=== PATIENT | male | born 1965 | race Caucasian/White ===

== ENCOUNTER 2016-08-18 17:42 | Inpatient (IN) | payer OTHER ==
[~2016-08-18] VITALS: Ht 172.7 cm; Wt 78.3 kg
[2016-08-18] MEDS ORDERED: SOD CHLORIDE 0.9% 500 ML IV STA (22:21)
[2016-08-18 22:46] LABS: BASOPHILS % 0.4 % (0.0-2.0); EOSINOPHILS # 0.3 10^3/ul (0.0-0.5); EOSINOPHILS % 3.1 % (0.0-7.0); HEMOGLOBIN 16.1 g/dl (14.0-18.0); LYMPHOCYTES # 2.6 10^3/ul (0.8-2.9); LYMPHOCYTES % 27.3 % (15.0-51.0); MEAN CORPUSCULAR HEMOGLOBIN 31.4 pg (29.0-33.0); MEAN CORPUSCULAR HGB CONC 34.9 g/dl (32.0-37.0); MEAN CORPUSCULAR VOLUME 90.1 fl (82.0-101.0); MEAN PLATELET VOLUME 9.2 fl (7.4-10.4); MONOCYTE # 0.9 10^3/ul (0.3-0.9); MONOCYTES % 9.4 % (0.0-11.0); NEUTROPHIL # 5.8 10^3/ul (1.6-7.5); NEUTROPHILS % 59.8 % (39.0-77.0); PLATELET COUNT 168 10^3/UL (140-440); RED BLOOD COUNT 5.11 10^6/ul (4.70-6.10); RED CELL DISTRIBUTION WIDTH 12.1 % (11.5-14.5); UNCORRECTED WBC 9.7 10^3/ul (4.8-10.8); WHITE BLOOD COUNT 9.7 10^3/ul (4.8-10.8)
--- NOTE | 2016-08-18 22:48 | RADRPT ---
PROCEDURE: XR Chest. CLINICAL INDICATION: Chest Pain. TECHNIQUE: Single frontal view of the chest was obtained COMPARISON: None FINDINGS: Cardiomegaly. The lungs are clear. There is no pleural effusion or pneumothorax. IMPRESSION: No acute disease. RPTAT: UU Physician Agueda Date Time Electronically viewed and signed by Physician Agueda on 08/18/2016 22:48 RS/
[2016-08-18 22:54] LABS: ALBUMIN 4.5 g/dl (3.3-4.9); INR 0.95; PROTIME 12.7 Sec (12.2-14.2)
[2016-08-18 22:55] LABS: CHLORIDE 96 mmol/L (97-110); CONDITION 1; PARTIAL THROMBOPLASTIN TIME 25.5 Sec (25.0-35.0); POTASSIUM 4.5 mmol/L (3.5-5.1); SODIUM 138 mmol/L (135-144)
[2016-08-18 22:57] LABS: ALBUMIN/GLOBULIN RATIO 1.55; ANION GAP 21 (8-16); ASPARTATE AMINO TRANSFERASE 28 IU/L (15-46); BILIRUBIN,INDIRECT 0.3 mg/dl (0-1.1); BILIRUBIN,TOTAL 0.3 mg/dl (0.2-1.3); CARBON DIOXIDE 26 mmol/L (21-31); CREATININE 1.58 mg/dl (0.61-1.24); TOTAL PROTEIN 7.4 g/dl (6.1-8.1)
[2016-08-18 22:58] LABS: ALANINE AMINOTRANSFERASE 49 IU/L (13-69); ALKALINE PHOSPHATASE 64 IU/L (42-121); BLOOD UREA NITROGEN 34 mg/dl (7-20); CALCIUM 8.8 mg/dl (8.4-10.2); GLUCOSE 183 mg/dl (70-220)
[2016-08-18 23:06] LABS: B-TYPE NATRIURETIC PEPTIDE 19 PG/ML (0-125)
[2016-08-18 23:14] LABS: TROPONIN-I < 0.012 ng/ml (0.00-0.12)
[2016-08-19] VITALS (11 sets, daily range): BP systolic 127–144; BP diastolic 85–94; PULSE 63–68; RESP 16–22; TEMP 97.8; Ht 172.7 cm; Wt 78.3 kg
--- NOTE | 2016-08-19 01:50 | ERA ---
ER Documentation Chief Complaint Date/Time DATE: 08/19/16 TIME: 01:49 Chief Complaint HEADACHE HIGH BP AND GEN WEAKNESS FOR THE PAST FEW WKS. NO NEURO DEF HPI This is a 50-year-old male with headache and high blood pressure generalized weakness opacities. No neuro deficit. No chest pain. No nausea no vomiting no other current complaints. ROS All systems reviewed and are negative except as per history of present illness. PMhx/Soc Medical and Surgical Hx: pt denies Surgical Hx History of Surgery: No Anesthesia Reaction: No Hx Neurological Disorder: No Hx Respiratory Disorders: No Hx Psychiatric Problems: No Hx Alcohol Use: No Hx Substance Use: No Hx Tobacco Use: No Smoking Status: Never smoker Physical Exam Vitals Vital Signs Date Time Temp Pulse Resp B/P Pulse Ox O2 Delivery O2 Flow Rate FiO2 08/19/16 01:00 97.8 89 16 128/89 99 Room Air 08/18/16 23:00 97.9 76 20 133/92 100 Room Air 08/18/16 19:13 89 16 124/74 99 Room Air 08/18/16 17:51 97.8 79 20 147/83 98 Physical Exam Const: [] Head: Atraumatic Eyes: Normal Conjunctiva ENT: Normal External Ears, Nose and Mouth. Neck: Full range of motion..~ No meningismus. Resp: Clear to auscultation bilaterally Cardio: Regular rate and rhythm, no murmurs Abd: Soft, non tender, non distended. Normal bowel sounds Skin: No petechiae or rashes Back: No midline or flank tenderness Ext: No cyanosis, or edema Neur: Awake and alert Psych: Normal Mood and Affect Result Diagram: 08/18/16223108/18/162231 Results 24 hrs Laboratory Tests Test 08/18/16 22:32 08/18/16 22:35 Activated Partial Thromboplast Time 25.5Sec Alanine Aminotransferase (ALT/SGPT) 49IU/L Albumin 4.5g/dl Albumin/Globulin Ratio 1.55 Alkaline Phosphatase 64IU/L Anion Gap 21 Aspartate Amino Transf (AST/SGOT) 28IU/L B-Type Natriuretic Peptide 19PG/ML Basophils # 0.010^3/ul Basophils % 0.4% Blood Urea Nitrogen 34mg/dl Calcium Level 8.8mg/dl Carbon Dioxide Level 26mmol/L Chloride Level 96mmol/L Creatinine 1.58mg/dl Direct Bilirubin 0.00mg/dl Eosinophils # 0.310^3/ul Eosinophils % 3.1% Globulin 2.90g/dl Glucose Level 183mg/dl Hematocrit 46.0% Hemoglobin 16.1g/dl INR International Normalized Ratio 0.95 Indirect Bilirubin 0.3mg/dl Lymphocytes # 2.610^3/ul Lymphocytes % 27.3% Mean Corpuscular Hemoglobin 31.4pg Mean Corpuscular Hemoglobin Concent 34.9g/dl Mean Corpuscular Volume 90.1fl Mean Platelet Volume 9.2fl Monocytes # 0.910^3/ul Monocytes % 9.4% Neutrophils # 5.810^3/ul Neutrophils % 59.8% Nucleated Red Blood Cells # 0.010^3/ul Nucleated Red Blood Cells % 0.0/100WBC Platelet Count 36220^3/UL Potassium Level 4.5mmol/L Prothrombin Time 12.7Sec Prothrombin Time Ratio 1.0 Red Blood Count 5.1110^6/ul Red Cell Distribution Width 12.1% Sodium Level 138mmol/L Total Bilirubin 0.3mg/dl Total Protein 7.4g/dl Troponin I < 0.012ng/ml White Blood Count 9.710^3/ul Bedside Glucose 193mg/dL Current Medications Medications (Trade) Dose Ordered Sig/Jeevan Route PRN Reason Start Time Stop Time Status Last Admin Dose Admin Sodium Chloride (NS) 500 ml @ 500 mls/hr Q1H STAT IV 08/18/16 22:21 08/18/16 23:20 DC 08/18/16 23:02 Procedures/MDM EKG: Rate/Rhythm: Normal Sinus Rhythm QRS, ST, T-waves: No changes consistent w/ acute ischemia Impression: No evidence of ischemia or arrhythmia Chest X-ray 1V Interpreted by me: Soft Tissue: No acute abnormalities Bones: No acute abnormalities Mediastinum/Cardiac Silhouette/Lungs: No acute abnormalities Patient's symptoms are concerning for cardiac cause will require inpatient workup and continuous monitoring. Further w/u for ischemia, arrhythmia, PE or dissection will be deferred to the inpatient team. Accepting Care Team: Current data and ongoing care discussed. Time: 130 Primary Provider: Hospitalist Consulting: [XOXOXO] Outstanding Data: none Departure Diagnosis: Primary Impression: Acute weakness Condition: Serious JOSE MIGUEL GARCIA Aug 19, 2016:50
--- NOTE | 2016-08-19 01:59 | HP ---
Date/Time of Note Date/Time of Note DATE: 08/19/16 TIME: 01:51 Assessment/Plan VTE Prophylaxis VTE Prophylaxis Intervention: heparin Lines/Catheters IV [facility] Saline Lock Assessment/Plan Assessment/Plan 50 yo male with a past medical history of essential hypertension, type II DM, hyperlipidemia, vitiligo, who presents with worsening chest pressure and weakness. 1. Chest pain - ACS vs Aneurysm vs dissection vs atypical - will admit the patient to telemetry, obtain a CTA chest, check lipid panel, morphine/oxygen/ NTG SL/Aspirin, pain medications, ECHO, cycle cardiac markers, check TSH/Mag level 2. Acute renal failure - iatrogenic vs 07/31 #1 - will continue with IVF, renally adjust medications, avoid nephrotoxins 3. Type II DM - check hgba1c, ISS, carb controlled diet 4. Essential hypertension - check home medications, hydralazine prn for SBP > 160 5. Dyslipidemia - check lipid panel, start statin if needed 6. Vitiligo - monitor acute changes 7. GI ppx - pepcid 8. DVT ppx - heparin answered all of his questions. as per clinical course. this history and physical took greater then 45 minutes to complete HPI/ROS Admit Date/Time Admit Date/Time 08/19/16, 1:51 am Hx of Present Illness 50 yo male with a past medical history of essential hypertension, type II DM, hyperlipidemia, vitiligo, who presents with worsening chest pressure and weakness. The weakness has been going on for the last 2 weeks. Otherwise the chest pressure is newer onset, substernal, radiating to the back, with diaphoresis, shortness of breath, 2/10 in intensity, no alleviating factors, intermittent in nature, never happened before. Does have dizziness and bilateral lower extremity weakness. Denies any nausea/vomiting/diarrhea, fevers/ chills, loss of consciousness, headaches, urinary/bowel irregularities or other constitutional symptoms. Patient was recently started on diabetes and blood pressure medications. ED course: IVF ROS 14 point review of systems completed, please refer to HPI for any positive findings PMH/Family/Social Past Medical History Vitiligo Medical History: diabetes, high cholesterol, hypertension Past Surgical History Past Surgical Hx: no surgical history Family History Significant Family History: no pertinent family hx, heart disease (none), diabetes (none), hypertension (none) Social History Alcohol Use: none Smoking Status: Never smoker Drug Use: none Exam/Review of Systems Vital Signs Vitals Vital Signs Date Time Temp Pulse Resp B/P Pulse Ox O2 Delivery O2 Flow Rate FiO2 08/19/16 01:00 97.8 89 16 128/89 99 Room Air Exam Exam Gen Amarjit: mild distress 2/2 chest pressure, AAOx4 HEENT: NC/AT, PERRLA, EOMI, no pharyngeal erythema, no tonsillar exudates, no lymphadenopathy, no JVD, no carotid bruits NECK: supple, no thyromegaly THORAX: symmetrical, no obvious deformities CV: S1S2, RRR, no M/G/R Lungs: CTAB no W/C/R/R Abd: soft, NT/ND, +BS, no rebound, no guarding, neg HSM EXT: no edema, no ecchymosis, no clubbing, FROM Neuro: CN II-XII grossly intact, no focal deficits Psych: fair mood and affect Skin: blotchy patches all over body, with hypopigmentation 2/2 to vitiligo changes Labs Result Diagram: 08/18/16223108/18/162231 Procedures Procedures CXR IMPRESSION: No acute disease. DANIELA JONES MD Aug 19, 2016 01:58
[2016-08-19] MEDS ORDERED: NITROGLYCERIN (SL) 0.4 MG TAB SL PRN (02:00)
[2016-08-19] MEDS ORDERED: Discontinue Glyburide, Glipizide, and/or Glimepiride prior to starting Insulin XX ONE (02:00)
[2016-08-19] MEDS ORDERED: hydrALAzine 20 MG INJ IV PRN (02:00)
[2016-08-19] MEDS ORDERED: NACL 0.9% 3 ML SYG IV SCH (02:00)
[2016-08-19] MEDS ORDERED: morphine 2 MG INJ IV PRN (02:00)
[2016-08-19] MEDS ORDERED: LORAZEPAM 2 MG INJ IV PRN (02:00)
[2016-08-19] MEDS ORDERED: DOCUSATE SODIUM 100 MG CAP PO PRN (02:00)
[2016-08-19] MEDS ORDERED: HYPOGLYCEMIA PROTOCOL when Glucose is <70 mg/dL or symptomatic <90 mg/dL. XX ONE (02:00)
[2016-08-19] MEDS ORDERED: ONDANSETRON 4 MG INJ IV PRN (02:00)
[2016-08-19] MEDS ORDERED: ACETAMINOPHEN 325 MG TAB PO PRN (02:00)
[2016-08-19] MEDS ORDERED: SOD CHLORIDE 0.9% 100 ML ONE (02:59)
[2016-08-19] MEDS ORDERED: IOHEXOL 300MG/ML 150 ML BTL ONE (02:59)
[2016-08-19 03:17] LABS: MAGNESIUM 2.1 mg/dl (1.7-2.5)
--- NOTE | 2016-08-19 03:23 | RADRPT ---
PROCEDURE: CT angiogram of the chest, abdomen and pelvis with contrast. CLINICAL INDICATION: Chest pain. TECHNIQUE: CT angiogram of the chest, abdomen and pelvis was performed on a multi-detector high-r Attivioolution CT scanner. Contiguous axial images were obtained during the dynamic injection of 100 cc of Omnipaque 350 intravenous contrast. Coronal and sagittal reformatted images were also obtained. 3-D reformatted images were also obtained. Images were reviewed on the PACS workstation. One or more of the following dose reduction techniques were used: - Automated exposure control. - Adjustment of the mA and/or kV according to patient size. - Use of iterative reconstruction technique. Exam CTD/vol = 11.61 mGy. Total exam DLP = 978.47 mGy-cm. COMPARISON: None. FINDINGS: Chest: The main pulmonary artery followed to the segmental divisions are well opacified. There is no filling defect or evidence of pulmonary embolism. The heart is normal in size. There is no zaira cardial thickening or effusion. The aorta is of tortuous and of normal caliber without evidence of aneurysm or dissection. There is no evidence of chest wall mass. The visualized thyroid is unremarkable. There are no enla rged axillary lymph nodes. There are no enlarged mediastinal or hilar lymph nodes by CT criteria. There is no parenchymal nodule or consolidation. There is no pleural effusion. The central tracheo bronchial tree is within normal limits. Abdomen: The liver is normal in size. There is no focal mass or dilatation of the biliary tree. T he gallbladder is not distended. The spleen, pancreas and bilateral adrenal glands are within natalio l limits. Bilateral kidneys are normal in size with symmetric enhancement. There is no focal mass, hydronephrosis or hydroureter. There is no retroperitoneal adenopathy. The abdominal aorta is of normal caliber without evidence of aneurysm or dissection. There is a small umbilical hernia containing fat. There is no abnormal bowel wall thickening or dis tension. There is no bowel obstruction or free air. A normal appendix is identified. There are sc attered right colonic diverticuli without evidence of diverticulitis. There is mild stranding of th e central mesenteric fat. There is no ascites. Pelvis: The bladder is unremarkable. The prostate and seminal vesicles are within normal limits. There is no significant pelvic adenopathy or free fluid. Evaluation of the osseous structures demonstrates no suspicious lytic or blastic lesion. IMPRESSION: No evidence of pulmonary embolism or aortic dissection. Scattered right colonic diverticuli without evidence of diverticulitis. Mild stranding of the central mesenteric fat represents nonspecific mesenteritis. Small umbilical hernia containing fat. .Levi Olivo MD, MD Date Time Electronically viewed and signed by .Levi Olivo MD, MD on 08/19/2016 03:23 .T/
[2016-08-19 03:49] LABS: THYROID STIMULATING HORMONE 1.92 MIU/L (0.465-4.680)
[2016-08-19] MEDS: SOD CHLORIDE 0.9% 1,000 ML IV SCH ×2 (04:10→10:37)
[2016-08-19 06:14] LABS: CREATINE KINASE 55 IU/L (23-200)
[2016-08-19 06:23] LABS: CK-MB 0.46 ng/ml (0.0-2.4)
[2016-08-19 06:26] LABS: TROPONIN-I < 0.012 ng/ml (0.00-0.12)
[2016-08-19] MEDS: INSULIN ASPART [NOVOLOG] 3 ML PEN SC SCH ×4 (07:55→21:00)
[2016-08-19] MEDS ORDERED: DEXTROSE 50% 50 ML SYRINGE IV PRN ×2 (09:00)
[2016-08-19] MEDS ORDERED: GLUCOSE GEL 15 GRAM TUBE PO PRN ×2 (09:00)
[2016-08-19] MEDS ORDERED: GLUCAGON 1 MG INJ IM PRN (09:00)
[2016-08-19] MEDS ORDERED: GLUCOSE GEL 15 GRAM TUBE BUCCAL PRN (09:00)
[2016-08-19] MEDS: ASPIRIN 81 MG TAB PO SCH (09:31)
[2016-08-19] MEDS: FAMOTIDINE 20 MG TAB PO SCH ×2 (09:32→21:10)
--- NOTE | 2016-08-19 09:33 | RADRPT ---
Echocardiogram Report Patient Name: CHANDRAKANT HIDALGO Gender: Male Date: 1965 Study Date: 19-Aug-2016 Stem Threshing Machine Operator: Melisa Muir [facility] Location: 507 Ref. Physician: DANIELA JONES Quality: Good Procedures: Transthoracic echocardiogram with complete 2D, M-Mode, and doppler examination. Indications: Chest Pain. 2D/M Mode Doppler Measurement Value Normal Ranges Measurement Value Normal Ranges LVIDd 2D 4.4 3.5 - 5.6 cm AV Peak [place] 0.9 m/sec LVIDs 2D 2.8 2.1 - 4.1 cm AV Peak PG 3.3 mmHg LVPWd 2D 1.0 0.6 - 1.1 cm LVOT Peak [place] 0.9 m/sec IVSd 2D 0.9 0.6 - 1.1 cm LVOT Peak PG 3.3 mmHg AoR Diam 2D 3.0 2.0 - 3.7 cm MV E Peak [place] 0.5 m/sec EDV 2D 85.6 cm3 MV A Peak [place] 0.5 m/sec ESV 2D 21.4 cm3 MV E/A 0.9 LA Dimen 2D 3.0 2.3 - 4.0 cm MV Decel Time 187 msec MV Decel [place] 2 MV E/A 0.9 Findings Left Ventricle: Normal left ventricular systolic function. Normal left ventricular cavity size. Normal left ventricular wall thickness. Ejection fraction is visually estimated at 55 %. Tissue Doppler/Mitral Doppler indices are consistent with impaired relaxation (Stage I diastolic dysfunction). Right Ventricle: Normal right ventricular size. Normal right ventricular systolic function. Left Atrium: The left atrium is normal in size. Right Atrium: The right atrium is normal in size. Mitral Valve: Normal appearance and function of the mitral valve with trace physiologic regurgitation. Aortic Valve: No significant aortic stenosis or insufficiency. Aortic cusps appear mildly calcified. Tricuspid Valve: Normal appearance of the tricuspid valve. Unable to obtain RVSP due to minimal presence of tricuspid regurgitation. Pulmonic Valve: Normal pulmonic valve appearance. Pericardium: Normal pericardium with no significant pericardial effusion. Aorta: Normal aortic root. IVC: Normal size and normal respiratory collapse consistent with normal right atrial pressure. Conclusions 1.Normal left ventricular systolic function. Normal left ventricular cavity size. Normal left ventricular wall thickness. Ejection fraction is visually estimated at 55 %. Tissue Doppler/Mitral Doppler indices are consistent with impaired relaxation (Stage I diastolic dysfunction). 2.No significant aortic stenosis or insufficiency. Aortic cusps appear mildly calcified. 3.Normal appearance and function of the mitral valve with trace physiologic regurgitation. 4.Normal appearance of the tricuspid valve. Unable to obtain RVSP due to minimal presence of tricuspid regurgitation. Electronically Signed By: Ag Krueger 19-Aug-2016 09:32:25 -0800 Patient Name: CHANDRAKANT HIDALGO Study Date: 19-Aug-2016 [id number]
[2016-08-19] MEDS: HEPARIN 5,000 UNIT/0.5 ML SYG SC SCH ×2 (09:34→21:13)
[2016-08-19] MEDS ORDERED: CLON-379 PO (10:35)
[2016-08-19] MEDS ORDERED: LOSA25TA2 PO (10:35)
[2016-08-19] MEDS ORDERED: SITA100T8 PO (10:35)
[2016-08-19] MEDS ORDERED: TRHC5025 PO (10:35)
[2016-08-19] MEDS ORDERED: ATOR80TA75 PO (10:35)
[2016-08-19] MEDS ORDERED: METF1000 PO (10:35)
--- NOTE | 2016-08-19 11:25 | QN ---
Documentation Comment The patient was seen and examined. Labs reviewed. Called Cardiology consult. Start the patient on antibiotics for enteritis evident on CT scan. Case discussed with Dr. Stinson. CRYS GUTIÉRREZ NP Aug 19, 2016 11:25
[2016-08-19] MEDS: metroNIDAZOLE 500 MG/NS (PMX) 100 ML IVPB SCH ×2 (12:07→21:14)
[2016-08-19] MEDS: NIFEdipine (XL) 30 MG TAB PO SCH ×2 (12:08→21:10)
[2016-08-19 12:25] LABS: CREATINE KINASE 59 IU/L (23-200)
[2016-08-19 12:33] LABS: POTASSIUM 4.6 mmol/L (3.5-5.1)
[2016-08-19 12:36] LABS: CREATININE 1.6 mg/dl (0.61-1.24); PHOSPHORUS 4.1 mg/dl (2.5-4.9)
[2016-08-19 12:37] LABS: CALCIUM 8.9 mg/dl (8.4-10.2); MAGNESIUM 2.2 mg/dl (1.7-2.5)
[2016-08-19] MEDS: LINAGLIPTIN 5 MG TABLET PO SCH (12:44)
[2016-08-19 12:45] LABS: CK-MB 0.44 ng/ml (0.0-2.4); TROPONIN-I < 0.012 ng/ml (0.00-0.12)
--- NOTE | 2016-08-19 16:41 | CONS ---
DATE OF ADMISSION: 08/19/2016 DATE OF CONSULTATION: 08/19/2016 REASON FOR CONSULTATION: Chest pain, assess for acute coronary syndrome. REQUESTING PHYSICIAN: Dr. Jones from the hospitalist service and Juan Degroot from the [facility] service. HISTORY OF PRESENT ILLNESS: Mr. Diaz is a 50-year-old male with a history of hypertension, diabete s mellitus, dyslipidemia, vitiligo, who initially presented with complaints of substernal chest pain , describes a pressure-like sensation with associated weakness and ongoing for approximately 2 weeks , not necessarily related to exertional activities and radiates to his back. Upon arrival in the em ergency department, temperature of 97.2, blood pressure 147/83, pulse 79, respiratory 20, saturating 98%. Patient's labs showed a white count 9.7, hemoglobin 6.1, platelet count 168. Sodium 138, pot assium 4.6, creatinine 1.6, BUN 35. CRP of less than 0.5, troponin negative. Hemoglobin A1c of 8.1 . INR 0.95. The patient underwent a chest x-ray revealing no acute cardiopulmonary abnormalities a nd a CT/CTA revealing no evidence of pulmonary embolism or aortic dissection, scattered right coloni c diverticulitis, mild stranding of essential mesenteric fat represents nonspecific mesenteritis, sm all umbilical hernia containing fat. The patient's electrocardiogram revealed normal sinus rhythm, rate of 74, normal axis, normal intervals with borderline anterior R-wave progression. The patient was subsequently admitted to the floor and since admit to floor has had some improvement in chest pa in. The patient has had a second troponin return negative for 2 negative troponins. PAST MEDICAL HISTORY: As above in HPI. MEDICATIONS CURRENTLY IN HOSPITAL: 1. Procardia 30 mg p.o. b.i.d. 2. Flagyl 100 mg p.o. q. 8. 3. Aspirin 81 mg daily. 4. ____ mg q. 12. 2. Heparin 5000 subq q.12h. 3. Insulin sliding scale. 4. Ativan p.r.n. 5. Zofran p.r.n. 6. Sublingual nitroglycerin p.r.n. 7. Morphine p.r.n. 8. Colace p.r.n. 9. Hydralazine p.r.n. ALLERGIES: NO KNOWN DRUG ALLERGIES. SOCIAL HISTORY: No tobacco, ETOH or illicit drug use. FAMILY HISTORY: No history of sudden cardiac or early CAD. REVIEW OF SYSTEMS: As above in HPI. CONSTITUTIONAL: No fevers, chills. PULMONARY: Shortness of breath. CARDIOVASCULAR: Positive chest pain. GASTROINTESTINAL: No vomiting. GENITOURINARY: No hematuria. MUSCULOSKELETAL: Some joint disease. PSYCHIATRIC: The patient denies depression. NEUROLOGIC: No documented history of CVA. PHYSICAL EXAMINATION VITAL SIGNS: Temperature of 98.8, blood pressure 144/94, pulse 68, respirations 16, temperature 97% . GENERAL: The patient is alert, awake, complaining of intermittent chest pain. NECK: JVP approximately 8 to 9 cm water. CHEST: Fair air movement throughout. HEART: Regular rate and rhythm. Normal S1, S2, I/ systolic murmur, nondisplaced PMI. ABDOMEN: Positive bowel sounds, soft. EXTREMITIES: No pitting edema, 1+ pulses bilaterally, posterior tibial. LABORATORY DATA: As above in HPI. No further labs for my review at this time. IMAGING STUDIES: As above in HPI. No further imaging studies for my review at this time. ECG: As above in HPI. No further electrocardiograms for my review at this time. IMPRESSION: 1. Chest pain, assess for acute coronary syndrome. 2. Hypertension. 3. Dyslipidemia. 4. Abdominal pain. 5. Vitiligo. 6. Possible mesenteritis by CT. 7. Renal failure. RECOMMENDATIONS: 1. At this time, would maintain the patient on telemetry monitoring to follow rhythm and rate contr ol closely. 2. Complete the patient's rule out for myocardial infarction to ensure that the patient's chest linda n was not due to an acute coronary syndrome such as acute myocardial infarction. 3. Continue the patient's aspirin for prophylaxis against cardiovascular events and additionally co ntinue the patient's Procardia for control of blood pressure and heart rate. 4. Will give patient p.r.n. sublingual nitroglycerin for recurrent episodes of chest pain. Patient has undergone a 2D echo interpreted by another sheet catcher revealing a preserved EF of 55% with di astolic dysfunction, trace mitral and tricuspid regurgitation. Thus, at this time for ongoing chest pain we will consider possible Lexiscan stress test to further assess the possibility of significan t obstructive coronary syndrome in anticipation of chest pain, abnormal electrocardiographic finding s and subsequent admit to the hospital. Thank you for allowing me to take part in the care of this patient. I will continue to follow along very closely with you with further recommendations to be made as the patient progresses through his inpatient hospital clinical course. Dictated By: IRASEMA BRAXTON/CINDI Conf#: [id number] DID#: [id number] CC: DANIELA JONES MD; JUAN DEGROOT PEDIATRIC OPHTHALMOLOGIST;*EndCC*
[2016-08-19 19:18] LABS: ADD UMIC NO; URINE BILIRUBIN (Dip) NEGATIVE (NEGATIVE); URINE BLOOD (Dip) NEGATIVE (NEGATIVE); URINE COLOR LT. YELLOW (YELLOW); URINE GLUCOSE (Dip) NEGATIVE (NEGATIVE); URINE KETONES (Dip) NEGATIVE (NEGATIVE); URINE LEUKOCYTE ESTERASE (Dip) NEGATIVE (NEGATIVE); URINE NITRITE (Dip) NEGATIVE (NEGATIVE); URINE TOTAL PROTEIN (Dip) NEGATIVE (NEGATIVE); URINE UROBILINOGEN (Dip) 1.0 E.U./dL (0.1-1.0)
[2016-08-20] VITALS (11 sets, daily range): BP systolic 106–134; BP diastolic 60–84; PULSE 67–89; RESP 16–20
[2016-08-20] MEDS: metroNIDAZOLE 500 MG/NS (PMX) 100 ML IVPB SCH ×3 (05:43→22:34)
[2016-08-20] MEDS: INSULIN ASPART [NOVOLOG] 3 ML PEN SC SCH ×4 (07:31→20:49)
[2016-08-20 07:45] LABS: MAGNESIUM 2.1 mg/dl (1.7-2.5); PHOSPHORUS 3.4 mg/dl (2.5-4.9)
[2016-08-20 07:56] LABS: CREATININE 1.29 mg/dl (0.61-1.24)
[2016-08-20 07:57] LABS: CALCIUM 8.7 mg/dl (8.4-10.2)
[2016-08-20 08:01] LABS: CHOL/HDL RATIO 3.3 RATIO
[2016-08-20] MEDS: HEPARIN 5,000 UNIT/0.5 ML SYG SC SCH ×2 (08:42→22:32)
[2016-08-20] MEDS: NIFEdipine (XL) 30 MG TAB PO SCH ×2 (09:00→22:34)
--- NOTE | 2016-08-20 09:09 | RADRPT ---
PROCEDURE: Retroperitoneal US. CLINICAL INDICATION: Renal insufficiency TECHNIQUE: Multiple sonographic images of the kidneys and retroperitoneum were obtained. The imag es were reviewed on a PACS workstation. COMPARISON: No prior studies are available for comparison. FINDINGS: The kidneys are normal in size, contour, cortical thickness and cortical echogenicity. The right kidney measures 11.3 cm. The left kidney measures 10.9 cm. No kidney stones are visualized. There is no evidence for hydronephrosis. The urinary bladder is normal. RPTAT: AA IMPRESSION: Unremarkable retroperitoneal ultrasound. .Christiano Berman MD, Date Time Electronically viewed and signed by .Christiano Berman MD, on 08/20/2016 09:09 .S/
--- NOTE | 2016-08-20 09:42 | CONS ---
DATE OF ADMISSION: 08/19/2016 DATE OF CONSULTATION: 08/19/2016 NEPHROLOGY CONSULTATION REQUESTING PHYSICIAN: Colin Guerrier MD REASON FOR CONSULTATION: Acute kidney injury. HISTORY OF PRESENT ILLNESS: This is a 50-year-old male with a past medical history of hypertension, diabetes, dyslipidemia, history of vitiligo who presents to [facility] with worse heidi chest pain. The patient stated the pain has been ongoing for the last 2 weeks. Describes subs ternal with radiation to the back with associated diaphoresis. The pain has been intermittent in na ture; however, has worsened over the last several days. As a result he came into the emergency room. The patient upon arrival was admitted to telemetry to rule out acute coronary syndrome. The patie nt while on telemetry has had serial troponins which were noted to be negative. The patient was see n by civil rights attorney, Dr. Simeon, and is planning for a stress test. In terms of the patient's renal history, on admission the patient noted to have a creatinine of 1.60 mg/dL. The patient denies any prior history of chronic kidney disease, but does state he has had longstanding hypertension and julio betes. He denies any recent NSAID use. He denies any contrast exposure. The patient does take los darin in an outpatient setting and hydrochlorothiazide. PAST MEDICAL HISTORY: As stated above, history of hypertension, history of diabetes, history of vit iligo. PAST SURGICAL HISTORY: Unknown. FAMILY HISTORY: No family history of kidney disease or heart disease. SOCIAL HISTORY: Does not drink, smoke, or do drugs. MEDICATIONS: The patient's medications have been reviewed. REVIEW OF SYSTEMS: A 14-point review of systems was conducted. Pertinent positives stated in HPI, otherwise negative. PHYSICAL EXAMINATION: VITAL SIGNS: Blood pressure is currently 106/60, respirations 20, pulse 79, temperature 98.3. HEENT: Head is normocephalic. NECK: Supple. HEART: Regular rate. LUNGS: Show diminished breath sounds at base. ABDOMEN: Soft, nontender to palpation. No rebound or guarding. EXTREMITIES: Negative for clubbing, cyanosis, no edema. DERMATOLOGIC: No rashes. NEUROLOGIC: The patient has got noted hyperpigmentation across the face. NEUROLOGIC: No focal deficits. MUSCULOSKELETAL: No joint effusions. LABORATORY DATA: Shows a sodium of 138, potassium 4.6, chloride 98, BUN 35, creatinine 1.60. CBC w ithin normal limits. IMAGING STUDIES: The patient's chest x-ray shows no acute disease. A CT angio was performed which showed no evidence of PE. ASSESSMENT AND PLAN: This is a 50-year-old male who presents with: 1. Nonoliguric acute kidney injury with unknown baseline creatinine. Etiology of acute kidney inju ry is likely hemodynamics. The patient did receive a CT angio and was exposed to contrast. However , there is no evidence of contrast-associated nephropathy at this time as the patient's renal functi on has been improving with IV hydration. The patient's urinalysis also shows a bland sediment with no proteinuria. Plan at this point is to repeat a UA with microanalysis. We will also check urine electrolytes and check for a microalbumin creatinine ratio. Will check a renal ultrasound to evalua te renal parenchyma. Will otherwise continue gentle IV hydration. Continue supportive care, renall y dose meds, avoid nephrotoxins. Would continue to hold ARB at this time. 2. Hypertension. Blood pressure is currently controlled. Continue current blood pressure regimen. 3. Mineral bone disorder. We will check a calcium, phosphorus level, check a PTH, vitamin D25 leve l. No need for phosphate binders. 4. Chest pain. The patient has been seen by cardiology. Planning for a stress test. We will foll ow up results. The patient has been ruled out for coronary syndrome. His troponins have been negat jose l. Continue medical management. 5. Dyslipidemia. Continue statin therapy. 6. Diabetes. Continue Accu-Cheks and insulin sliding scale. 7. Vitiligo. Continue to monitor. Thank you, Dr. Guerrier, for this infectious disease consultation. It will be a pleasure to follow t he patient with you throughout the hospital course. Dictated By: EVAN PEÑA/CINDI Conf#: [id number] DID#: [id number]
[2016-08-20 09:48] LABS: BASOPHIL # 0.1 10^3/ul (0.0-0.1); BASOPHILS % 0.8 % (0.0-2.0); EOSINOPHILS # 0.2 10^3/ul (0.0-0.5); EOSINOPHILS % 3.1 % (0.0-7.0); HEMATOCRIT 41.1 % (42.0-52.0); HEMOGLOBIN 14.6 g/dl (14.0-18.0); LYMPHOCYTES # 2.2 10^3/ul (0.8-2.9); LYMPHOCYTES % 31.4 % (15.0-51.0); MEAN CORPUSCULAR HEMOGLOBIN 31.9 pg (29.0-33.0); MEAN CORPUSCULAR HGB CONC 35.6 g/dl (32.0-37.0); MEAN CORPUSCULAR VOLUME 89.6 fl (82.0-101.0); MEAN PLATELET VOLUME 9.5 fl (7.4-10.4); MONOCYTE # 0.7 10^3/ul (0.3-0.9); MONOCYTES % 9.8 % (0.0-11.0); NEUTROPHIL # 3.8 10^3/ul (1.6-7.5); NEUTROPHILS % 54.9 % (39.0-77.0); PLATELET COUNT 148 10^3/UL (140-440); RED BLOOD COUNT 4.58 10^6/ul (4.70-6.10); RED CELL DISTRIBUTION WIDTH 12.1 % (11.5-14.5)
[2016-08-20 09:51] LABS: CONDITION 1
[2016-08-20] MEDS ORDERED: REGADENOSON 0.4 MG/5 ML SYG ONE (10:54)
[2016-08-20] MEDS ORDERED: INFLUENZA VIRUS VACCINE 0.5 ML SYG IM* ONE (11:00)
--- NOTE | 2016-08-20 12:00 | CONS ---
Date/Time of Note Date/Time of Note DATE: 08/20/16 TIME: 11:56 Assessment/Plan Assessment/Plan Chief Complaint/Hosp Course IMPRESSION: 1. Chest pain, assess for acute coronary syndrome.-negative troponin x 3 2. Hypertension. 3. Dyslipidemia. 4. Abdominal pain. 5. Vitiligo. 6. Possible mesenteritis by CT. 7. Renal failure. Recc: -Tle -serial ecg's -Continue asa -Continue procardia XL -Lexiscan stress test -Continue abx's Problems: Consultation Date/Type/Reason Admit Date/Time Aug 19, 2016 at 01:35 Initial Consult Date 08/19/2016 Type of Consultation: Cardiology Reason for Consultation Chest pain Referring Provider: DANIELA JONES MD Exam/Review of Systems Vital Signs Vitals Vital Signs Date Time Temp Pulse Resp B/P Pulse Ox O2 Delivery O2 Flow Rate FiO2 08/20/16 08:04 67 08/20/16 07:23 97.8 18 117/77 99 08/20/16 06:00 Room Air Intake and Output 08/19/16 08/19/16 08/20/16 15:00 23:00 07:00 Intake Total 250 ml 1560 ml 300 ml Balance 250 ml 1560 ml 300 ml Exam Review of Systems: CONSTITUTIONAL: No fevers, chills. PULMONARY: No sob CARDIOVASCULAR: intermittent chest pain GASTROINTESTINAL: No nausea/vomiting. GENITOURINARY: No hematuria/dysuria. MUSCULOSKELETAL: No myagias/arthalgias. PSYCHIATRIC: The patient denies depression. NEUROLOGIC: No weakness Constitutional: alert, oriented Psych: no complaints Head: normocephalic ENMT: mucosa pink and moist Neck: jvd (9 cm water), supple Respiratory: diminished breath sounds (at bases/B) Cardiovascular: regular rate and rhythm Gastrointestinal: non-tender, soft Musculoskeletal: muscle tone (normal) Extremities: edema (none) Neurological: other (No focal deficits) Results Result Diagram: 08/20/16 0635 08/20/16 0625 Results 24 hrs Laboratory Tests Test 08/19/16 17:43 08/19/16 18:33 08/19/16 21:21 08/20/16 06:00 Bedside Glucose 130 155 122 Urine Bilirubin NEGATIVE Urine Clarity CLEAR Urine Color LT. YELLOW Urine Glucose NEGATIVE Urine Hemoglobin NEGATIVE Urine Ketones NEGATIVE Urine Leukocyte Esterase NEGATIVE Urine Nitrite NEGATIVE Urine Specific [place] 1.010 Urine Total Protein NEGATIVE Urine Urobilinogen 1.0 E.U./dL Urine pH 6.0 Test 08/20/16 06:25 08/20/16 06:35 08/20/16 07:30 Anion Gap 16 Blood Urea Nitrogen 23 #H Calcium Level 8.7 Carbon Dioxide Level 28 Chloride Level 100 Creatinine 1.29 H Glucose Level 138 # Potassium Level 4.0 Sodium Level 140 Basophils # 0.1 Basophils % 0.8 Cholesterol Level 127 Cholesterol/HDL Ratio 3.3 Eosinophils # 0.2 Eosinophils % 3.1 Erythrocyte Sedimentation Rate 12 HDL Cholesterol 38 Hematocrit 41.1 L Hemoglobin 14.6 LDL Cholesterol, Calculated 61 Lymphocytes # 2.2 Lymphocytes % 31.4 Magnesium Level 2.1 Mean Corpuscular Hemoglobin 31.9 Mean Corpuscular Hemoglobin Concent 35.6 Mean Corpuscular Volume 89.6 Mean Platelet Volume 9.5 Monocytes # 0.7 Monocytes % 9.8 Neutrophils # 3.8 Neutrophils % 54.9 Nucleated Red Blood Cells # 0.0 Nucleated Red Blood Cells % 0.0 Parathyroid Hormone (Intact) Phosphorus Level 3.4 Platelet Count 148 Red Blood Count 4.58 L Red Cell Distribution Width 12.1 Triglycerides Level 140 White Blood Count 7.0 # Bedside Glucose 123 Medications Medications Current Medications Lorazepam (Ativan) 0.5 mg Q6H PRN IV ANXIETY; Start 08/19/16 at 02:00 Ondansetron HCl (Zofran Inj) 4 mg Q6H PRN IV NAUSEA AND/OR VOMITING; Start at 02:00 Aspirin (Aspirin) 81 mg DAILY PO Last administered on 08/19/16t 09:31; Admin Dose 81 MG; Start 08/19/16 at 09:00 Nitroglycerin (Nitroglycerin (Sl Tab) 0.4 Mg) 1 tab Q5M PRN SL CHEST PAIN; Start 08/19/16 at 02:00 Acetaminophen (Tylenol Tab) 650 mg Q6H PRN PO PAIN LEVEL 1-3 OR FEVER; Start at 02:00 Morphine Sulfate (morphine) 2 mg Q4H PRN IV PAIN LEVEL 7-10; Start 08/19/16 at 02:00 Docusate Sodium (Colace) 100 mg Q12H PRN PO CONSTIPATION; Start 08/19/16 at 02: 00 Famotidine (Pepcid) 20 mg Q12 PO Last administered on 08/19/16 21:10; Admin Dose 20 MG; Start 08/19/16 at 09:00 Heparin Sodium (Porcine) (Heparin (5000 Units/0.5 ml)) 5,000 unit Q12 SC Last administered on 08/20/16 08:42; Admin Dose 5,000 UNIT; Start 08/19/16 at 09:00 Hydralazine HCl (Apresoline) 10 mg Q6H PRN IV sbp > 160; Start 08/19/16 at 02: 00 Miscellaneous Information 1 ea NOTE XX ; Start 08/19/16 at 09:00 Glucose (Glutose) 15 gm Q15M PRN PO DECREASED GLUCOSE; Start 08/19/16 at 09:00 Glucose (Glutose) 22.5 gm Q15M PRN PO DECREASED GLUCOSE; Start 08/19/16 at 09: 00 Dextrose (D50w Syringe) 25 ml Q15M PRN IV DECREASED GLUCOSE; Start 08/19/16 at 09:00 Dextrose (D50w Syringe) 50 ml Q15M PRN IV DECREASED GLUCOSE; Start 08/19/16 at 09:00 Glucagon (Glucagen) 1 mg Q15M PRN IM DECREASED GLUCOSE; Start 08/19/16 at 09:00 Glucose (Glutose) 15 gm Q15M PRN BUCCAL DECREASED GLUCOSE; Start 08/19/16 at 09 :00 Nifedipine 30 mg 30 mg BID PO Last administered on 08/19/16 21:10; Admin Dose 30 MG; Start 08/19/16 at 12:00 Metronidazole (Flagyl 500 Mg (Pmx)) 100 ml @ 100 mls/hr Q8 IVPB Last administered on 08/20/16 05:43; Admin Dose 100 MLS/HR; Start 08/19/16 at 12:00 Linagliptin (Tradjenta) 5 mg DAILY PO Last administered on 08/19/16 12:44; Admin Dose 5 MG; Start 08/19/16 at 12:30 IRASEMA JORDAN Aug 20, 2016 12:00
--- NOTE | 2016-08-20 12:28 | PN ---
DATE: 08/20/2016 SUBJECTIVE: The patient is stable, no acute events overnight. No fevers, chills, nausea or vomitin g. No shortness of breath. OBJECTIVE: VITAL SIGNS: Blood pressure is 117/77, respiration 18, pulse 71, temperature 97.8. HEENT: Head is normocephalic. NECK: Supple. HEART: Regular rate. LUNGS: Show diminished breath sounds at the base. ABDOMEN: Soft, nontender to palpation. No rebound or guarding. EXTREMITIES: Negative for clubbing, cyanosis, no edema. DERMATOLOGIC: No rashes. MUSCULOSKELETAL: No joint effusions. NEUROLOGIC: No change in exam. MEDICATIONS: The patient's medications have been reviewed. LABORATORY DATA: Shows a sodium 140, potassium 4.0, chloride 100, BUN 23, creatinine 1.29. White c ount 7.0, hemoglobin 14.6, hematocrit 41.1, platelet count is 148. ASSESSMENT AND PLAN: 1. Nonoliguric acute kidney injury with unknown baseline creatinine. Etiology of acute kidney inju ry appears to be secondary to hemodynamics. Possible ____. The patient's renal function has improv ed significantly with IV fluids. There is no evidence of contrast-associated nephropathy at this ti me. At this point, continue current treatment plan, supportive care, renally dose all meds. We will follow up with renal ultrasound. We will follow up repeat urinalysis, and also check a microalbumi n creatinine ratio. Would continue to hold ARB at this time. However, if renal function continues to improve and stabilizes, may reintroduce Losartan. 2. Hypertension. Continue current blood pressure regimen. 3. Mineral bone disorder. Will monitor calcium and phosphorus levels. Check a PTH, vitamin D25 le derik. 4. Chest pain. The patient has been seen by cardiology, pending stress test. 5. Dyslipidemia. Continue statin therapy. 6. Diabetes. Continue Accu-Cheks and sliding scale. 7. Vitiligo. Will continue to monitor. Dictated By: EVAN PEÑA/CINDI Conf#: [id number] DID#: [id number]
[2016-08-20] MEDS: ASPIRIN 81 MG TAB PO SCH (12:47)
[2016-08-20] MEDS: LINAGLIPTIN 5 MG TABLET PO SCH (12:48)
[2016-08-20] MEDS: FAMOTIDINE 20 MG TAB PO SCH ×2 (12:48→22:23)
--- NOTE | 2016-08-20 13:01 | RADRPT ---
PROCEDURE: Lexiscan myocardial perfusion study CLINICAL INDICATION: 50 -year-old patient complaining of chest pain. TECHNIQUE: Lexiscan 0.4 mg intravenously separate acquisition gated myocardial perfusion SPECT usi ng Tc 99m Myoview 30.1 mCi intravenously at stress and Tc-99m Myoview, 9.5 mCi intravenously at rest was performed using the rest/stress sequence. Poststress Myoview SPECT images were obtained in the supine position. COMPARISON: No prior studies. FINDINGS: Perfusion images reveal no evidence of perfusion defects. Lexiscan post stress gated SPECT images demonstrate no wall motion abnormalities. IMPRESSION: 1. No evidence of perfusion defects. 2. No wall motion abnormalities. 3. The left ventricle ejection fraction at stress is 69%. A call report was made to Dr. Simeon at 01:00 p.m. on August 20, 2016. RPTAT: HH .Sybil Webb MD, Date Time Electronically viewed and signed by .Sybil Webb MD, on 08/20/2016 13:01 .Lanie/
[2016-08-20 13:08] LABS: ADD UMIC NO; URINE BILIRUBIN (Dip) NEGATIVE (NEGATIVE); URINE BLOOD (Dip) NEGATIVE (NEGATIVE); URINE COLOR LT. YELLOW (YELLOW); URINE GLUCOSE (Dip) NEGATIVE (NEGATIVE); URINE KETONES (Dip) 15 (NEGATIVE); URINE LEUKOCYTE ESTERASE (Dip) NEGATIVE (NEGATIVE); URINE NITRITE (Dip) NEGATIVE (NEGATIVE); URINE TOTAL PROTEIN (Dip) NEGATIVE (NEGATIVE); URINE UROBILINOGEN (Dip) 0.2 E.U./dL (0.1-1.0)
--- NOTE | 2016-08-20 15:30 | CARRPT ---
DATE OF PROCEDURE: 08/20/2016 PROCEDURE: Lexiscan Cardiolite stress test. REASON FOR STRESS TESTING: Chest pain, assess for ischemia. BASELINE VITAL SIGNS AND ELECTROCARDIOGRAM: Pulse 64, blood pressure 138/86. Electrocardiogram rev eals normal sinus rhythm, rate of 64, normal axis, normal intervals, isolated T-wave flattening in a VL. PROCEDURE: The patient underwent standard Lexiscan infusion protocol over 10 seconds followed by ra diolabeled tracer. The patient's test was stopped due to completion of protocol. Maximal achieved blood pressure during the test 133/82. Maximal heart rate during the test 105. ELECTROCARDIOGRAM FINDINGS: The patient did not develop any new Lexiscan-induced ST or T wave medina es from baseline abnormalities. No documented PVCs. SYMPTOMS: The patient had complaints of chest pressure during stress test, resolved in recovery. IMPRESSION: 1. No Lexiscan-induced ST or T wave changes from baseline abnormalities diagnostic for cardiac isch emia. 2. Complaints of chest pain during stress testing which resolved in recovery. 3. No documented premature ventricular contractions during stress testing. 4. Report of nuclear images to follow in separate dictation. Dictated By: IRASEMA BRAXTON/CINDI Conf#: [id number] DID#: [id number] CC: ;*EndCC*
--- NOTE | 2016-08-20 16:00 | RADRPT ---
Vent Rate: 68 bpm RR Interval: 0 msec SC Interval: 146 msec QRS Duration: 92 msec QT Interval: 396 msec QTC Interval: 421 msec P-R-T Spencer: 27 - 40 - 39 degrees Normal sinus rhythm Normal ECG Electronically Signed By: Sujit Sanchez [id number]
--- NOTE | 2016-08-20 16:03 | PN ---
DATE: 08/20/2016 SUBJECTIVE DATA: The patient is status post cardiac stress test. Denies any chest pain. Denies any weakness. OBJECTIVE DATA: VITAL SIGNS: Temperature 98.2, pulse rate 70, respiratory rate 18, blood pressure 121/77, oxygen saturation 96% on room air. GENERAL: This is a well-built, well-nourished male patient, lying in bed, in no apparent distress. HEENT: Head normocephalic and atraumatic. Eyes: Anicteric sclerae. Conjunctivae clear. ENT: Nasal septum is midline. Oral mucosa is moist. NECK: Supple. No JVD noticed. RESPIRATORY: Bilaterally clear to auscultation. No adventitious breath sounds. No use of accessory muscles of respiration. CARDIAC: Regular rate and rhythm. No murmurs heard. ABDOMEN: Soft, nontender, and nondistended. Bowel sounds positive in all 4 quadrants. GENITOURINARY: Deferred. EXTREMITIES: No cyanosis, no clubbing, no edema. Peripheral pulses are palpable. NEUROLOGIC: The patient is awake, alert, and oriented. Cranial nerves are grossly intact. SKIN: Multiple areas of hypopigmentation. LABORATORY AND DIAGNOSTIC DATA: WBC 7.0, hemoglobin 14.6, hematocrit 41.1, platelet count 148. Sodium 140, potassium 4.0, chloride 100, carbon dioxide 28 , anion gap 16, BUN 23, creatinine 1.9, glucose 130, calcium 8.7. Nuclear medicine cardiac stress test: No evidence of perfusion defects. No wall motion abnormalities. The left ventricular ejection fraction at stress is 69%. ASSESSMENT AND PLAN: 1. Chest pain. Acute coronary syndrome ruled out. Serial troponins negative. 2D echocardiogram showing preserved left ventricular ejection fraction with stage I diastolic dysfunction. Cardiac stress test negative. 2. Acute nonoliguric kidney injury in a patient with unknown baseline creatinine. Etiology unclear. Could be from longstanding hypertension and diabetes versus use of nephrotoxic medications. The patient's nephrotoxic medications are on hold. Continue the patient on gentle IV hydration. Continue to monitor the BUN and creatinine closely. Nephrology following the patient. 3. Type 2 diabetes mellitus. Hemoglobin A1c 8.1. Continue sliding scale insulin. Avoid metformin at this time because of worsening renal function. 4. Vitiligo. Monitor for any acute changes. 5. Essential hypertension. Continue antihypertensives. Blood pressure fairly well controlled. 6. Mesenteritis. Continue antibiotics. Symptomatically improving. 7. Diverticulosis without evidence of diverticulitis. Diverticulosis diet. 8. Fluid, electrolytes, and nutrition. Continue carbohydrate controlled, low cholesterol diet. 9. DVT prophylaxis. Subcutaneous heparin. 10. Gastrointestinal prophylaxis. Histamine 2 receptor blockers. PLAN: Continue gentle IV hydration. Monitor renal function closely. Case discussed with Dr. Cano. The plan of care and the patient's clinical condition was well explained to the patient and the patient's family. CRYS CANO MD, AM/CINDI Conf#: [id number] DID#: [id number] MTDD
[2016-08-21] VITALS (8 sets, daily range): BP systolic 119–132; BP diastolic 68–83; PULSE 74–81; RESP 18–20
[2016-08-21] MEDS: metroNIDAZOLE 500 MG/NS (PMX) 100 ML IVPB SCH ×2 (06:12→14:00)
[2016-08-21 07:28] LABS: MAGNESIUM 1.9 mg/dl (1.7-2.5)
[2016-08-21] MEDS: INSULIN ASPART [NOVOLOG] 3 ML PEN SC SCH ×2 (07:59→11:28)
[2016-08-21] MEDS: FAMOTIDINE 20 MG TAB PO SCH (08:19)
[2016-08-21] MEDS: ASPIRIN 81 MG TAB PO SCH (08:19)
[2016-08-21] MEDS: LINAGLIPTIN 5 MG TABLET PO SCH (08:19)
[2016-08-21] MEDS: NIFEdipine (XL) 30 MG TAB PO SCH (08:20)
[2016-08-21] MEDS: HEPARIN 5,000 UNIT/0.5 ML SYG SC SCH (08:27)
--- NOTE | 2016-08-21 08:46 | PN ---
DATE: 08/21/2016 SUBJECTIVE: The patient is stable. No acute events overnight. No fevers, chills, nausea, vomiting . The patient had a cardiac stress test yesterday which showed no reversible defects. No other mayra nts noted. OBJECTIVE: VITAL SIGNS: Blood pressure 122/83, respirations 18, pulse 72, temperature 99.3. HEENT: Head is normocephalic. NECK: Supple. HEART: Regular rate. LUNGS: Showed diminished breath sounds at the base. ABDOMEN: Soft, nontender to palpation. No rebound or guarding. EXTREMITIES: Negative for clubbing or cyanosis. No edema. DERMATOLOGIC: No rashes. MUSCULOSKELETAL: Have no joint effusion. NEUROLOGIC: No focal deficits. MEDICATIONS: Have been reviewed. LABORATORY: Laboratory data from 08/20/2016 was reviewed. Laboratory data from 08/21/2016 is grey anderson pending. ASSESSMENT AND PLAN: 1. Nonoliguric acute kidney injury, with unknown baseline creatinine. Etiology of acute kidney inj ury is secondary to hemodynamics. There is no evidence of contrast-associated nephropathy at this t cierra. The patient's renal ultrasound was reviewed, showed normal kidney parenchyma, no obstruction, and urinalysis that showed no acute findings. At this point, will continue the current treatment pl an, supportive care, renally dose all meds. Okay to resume CARLOS inhibitor or ARB at this time. 2. Hypertension. Blood pressure controlled. Continue the current blood pressure regimen. 3. Mineral bone disorder. Continue to monitor calcium and phosphorus levels. 4. Chest pain. The patient's stress test was negative. His symptoms resolved. Continue medical m anagement. 5. Dyslipidemia. Continue statin therapy. 6. Diabetes. Continue Accu-Cheks and insulin sliding scale. 7. Vitiligo. Continue to monitor. 8. Mesenteritis. Continue current antibiotics. Dictated By: EVAN MANRIQUEZ DO NR/NTS Conf#: [id number] DID#: [id number]
[2016-08-21 09:37] LABS: POTASSIUM 3.8 mmol/L (3.5-5.1)
[2016-08-21 09:39] LABS: CREATININE 1.21 mg/dl (0.61-1.24)
[2016-08-21 09:41] LABS: CALCIUM 8.7 mg/dl (8.4-10.2)
--- NOTE | 2016-08-21 12:07 | CONS ---
Date/Time of Note Date/Time of Note DATE: 08/21/16 TIME: 12:06 Assessment/Plan Assessment/Plan Chief Complaint/Hosp Course IMPRESSION: 1. Chest pain, assess for acute coronary syndrome.-negative troponin x 3/ lexiscan negative for ischemia 2. Hypertension. 3. Dyslipidemia. 4. Abdominal pain. 5. Vitiligo. 6. Possible mesenteritis by CT. 7. Renal failure. Recc: -Tle -serial ecg's -Continue asa -Continue procardia XL -Continue abx's Problems: Consultation Date/Type/Reason Admit Date/Time Aug 20, 2016 at 15:13 Initial Consult Date 08/19/2016 Type of Consultation: Cardiology Reason for Consultation chest pain Referring Provider: DANIELA JONES MD Exam/Review of Systems Vital Signs Vitals Vital Signs Date Time Temp Pulse Resp B/P Pulse Ox O2 Delivery O2 Flow Rate FiO2 08/21/16 10:54 98.9 78 18 130/82 97 08/20/16 06:00 Room Air Intake and Output 08/20/16 08/20/16 08/21/16 15:00 23:00 07:00 Intake Total 880 ml 250 ml Output Total 100 ml Balance 780 ml 250 ml Exam Review of Systems: CONSTITUTIONAL: No fevers, chills. PULMONARY: No sob CARDIOVASCULAR: No chest pain/palpitations GASTROINTESTINAL: No nausea/vomiting. GENITOURINARY: No hematuria/dysuria. MUSCULOSKELETAL: No myagias/arthalgias. PSYCHIATRIC: The patient denies depression. NEUROLOGIC: No weakness Constitutional: alert, oriented Psych: no complaints Head: normocephalic ENMT: mucosa pink and moist Neck: jvd, supple Respiratory: diminished breath sounds (at bases/B) Cardiovascular: regular rate and rhythm Gastrointestinal: non-tender, soft Musculoskeletal: muscle tone (normal) Extremities: edema (none) Neurological: other (No focal deficits) Results Result Diagram: 08/20/16 0635 08/21/16 0623 Results 24 hrs Laboratory Tests Test 08/20/16 12:43 08/20/16 17:13 08/20/16 20:49 08/21/16 06:23 Bedside Glucose 163 234 H 109 Anion Gap 17 H Blood Urea Nitrogen 18 Calcium Level 8.7 Carbon Dioxide Level 26 Chloride Level 102 Creatinine 1.21 Glucose Level 170 Magnesium Level 1.9 Phosphorus Level 3.0 Potassium Level 3.8 Sodium Level 141 Test 08/21/16 07:57 08/21/16 11:24 Bedside Glucose 189 279 H Medications Medications Current Medications Lorazepam (Ativan) 0.5 mg Q6H PRN IV ANXIETY; Start 08/19/16 at 02:00 Ondansetron HCl (Zofran Inj) 4 mg Q6H PRN IV NAUSEA AND/OR VOMITING; Start at 02:00 Aspirin (Aspirin) 81 mg DAILY PO Last administered on 08/21/16 08:19; Admin Dose 81 MG; Start 08/19/16 at 09:00 Nitroglycerin (Nitroglycerin (Sl Tab) 0.4 Mg) 1 tab Q5M PRN SL CHEST PAIN; Start 08/19/16 at 02:00 Acetaminophen (Tylenol Tab) 650 mg Q6H PRN PO PAIN LEVEL 1-3 OR FEVER Last administered on 08/20/16 12:47; Admin Dose 650 MG; Start 08/19/16 at 02:00 Morphine Sulfate (morphine) 2 mg Q4H PRN IV PAIN LEVEL 7-10; Start 08/19/16 at 02:00 Docusate Sodium (Colace) 100 mg Q12H PRN PO CONSTIPATION; Start 08/19/16 at 02: 00 Famotidine (Pepcid) 20 mg Q12 PO Last administered on 08/21/16 08:19; Admin Dose 20 MG; Start 08/19/16 at 09:00 Heparin Sodium (Porcine) (Heparin (5000 Units/0.5 ml)) 5,000 unit Q12 SC Last administered on 08/21/16 08:27; Admin Dose 5,000 UNIT; Start 08/19/16 at 09:00 Hydralazine HCl (Apresoline) 10 mg Q6H PRN IV sbp > 160; Start 08/19/16 at 02: 00 Miscellaneous Information 1 ea NOTE XX ; Start 08/19/16 at 09:00 Glucose (Glutose) 15 gm Q15M PRN PO DECREASED GLUCOSE; Start 08/19/16 at 09:00 Glucose (Glutose) 22.5 gm Q15M PRN PO DECREASED GLUCOSE; Start 08/19/16 at 09: 00 Dextrose (D50w Syringe) 25 ml Q15M PRN IV DECREASED GLUCOSE; Start 08/19/16 at 09:00 Dextrose (D50w Syringe) 50 ml Q15M PRN IV DECREASED GLUCOSE; Start 08/19/16 at 09:00 Glucagon (Glucagen) 1 mg Q15M PRN IM DECREASED GLUCOSE; Start 08/19/16 at 09:00 Glucose (Glutose) 15 gm Q15M PRN BUCCAL DECREASED GLUCOSE; Start 08/19/16 at 09 :00 Nifedipine 30 mg 30 mg BID PO Last administered on 08/21/16 08:20; Admin Dose 30 MG; Start 08/19/16 at 12:00 Metronidazole (Flagyl 500 Mg (Pmx)) 100 ml @ 100 mls/hr Q8 IVPB Last administered on 08/21/16 06:12; Admin Dose 100 MLS/HR; Start 08/19/16 at 12:00 Linagliptin (Tradjenta) 5 mg DAILY PO Last administered on 08/21/16 08:19; Admin Dose 5 MG; Start 08/19/16 at 12:30 IRASEMA JORDAN Aug 21, 2016 12:07
--- NOTE | 2016-08-21 14:10 | PDOCDIS ---
Discharge Instructions DIAGNOSIS Discharge Diagnosis: Chest pain. ACS ruled out. CONDITION Patient Condition: Stable HOME CARE INSTRUCTIONS: Special Diet: Low fat low cholesterol, carbohydrate controlled FOLLOW UP/APPOINTMENTS Appointments Russel Ibarra MD Specialty: Internal Medicine Office Address: [address] [place] [address] [place], [place] [id number] Office OTHER ORDERS: Other Orders: 1. Take a carbohydrate controlled diet. 2. Resume activities as tolerated. 3. Resume home medications. 4. Follow-up with your primary care physician in one week. If you do not have a primary care physician, please call Dr. Russel Ibarra's office. Please arrange for checking renal function in 1 week with your primary care physician. 5. Call 911 or go to the nearest emergency room if you have any chest pain, significant shortness of breath, or any other unusual signs or symptoms. CRYS GUTIÉRREZ NP Aug 21, 2016 14:10
[2016-08-21] MEDS ORDERED: METR500T PO (14:13)
[2016-08-21 15:14] LABS: MICROALBUMIN 1.3 mg/dL
--- NOTE | 2016-08-21 16:52 | DS ---
DATE OF ADMISSION: 08/19/2016 DATE OF DISCHARGE: 08/21/2016 FINAL DIAGNOSES: 1. Chest pain. Acute coronary syndrome ruled out. 2. Acute nonoliguric kidney injury. Resolved. 3. Type 2 diabetes mellitus. 4. Vitiligo. 5. Essential hypertension. 6. Non-specific mesenteritis. 7. Diverticulosis without evidence of diverticulitis. 8. Hyperlipidemia. CONSULTATIONS: 1. Dr. Carrillo Simeon, cardiology. 2. Dr. Darvin Wilcox, nephrology. HOSPITAL COURSE: This is a 50-year-old male with past medical history of essential hypertension, type 2 diabetes mellitus and hyperlipidemia who presented to the emergency room with chest pain and weakness. The patient verbalized that he has been having weakness for a 2 week period. The patient verbalized the chest pressure as new in onset that was described as substernal with radiation to the back with associated diaphoresis and shortness of breath. The patient also verbalized dizziness and bilateral lower extremity weakness. Provided the patient's history of present illness, his comorbidities and the diagnostic findings, a clinical decision was made to admit the patient to inpatient setting to have him further evaluated. The patient was admitted to inpatient telemetry floor. A cardiology consult was called on this patient. The patient was also noticed to have acute kidney injury. The patient's baseline creatinine is unknown. Nephrology consult was also called on this patient. The patient's serial troponins remained negative. The patient underwent a 2D echocardiogram that showed preserved left ventricular ejection fraction with stage I diastolic dysfunction. The patient also underwent a nuclear medicine cardiac stress test that was negative for any reversible perfusion defects. The patient was ruled out for any acute coronary syndrome. The patient underwent a CT angiogram of the chest that was negative for any pulmonary embolism. However, the CT showed right colon diverticula without diverticulitis and mild stranding of the central mesenteric fat representing nonspecific mesenteritis. Hence, the patient was started on antibiotics with improvement in the patient's abdominal discomfort and anorexia. The patient had acute kidney injury. Etiology of this remains unclear. This could be most probably from hemodynamic versus from longstanding hypertension and diabetes. Nevertheless, the patient's renal function improved with holding the nephrotoxic medications and gentle hydration. The patient also has underlying type 2 diabetes mellitus. The patient's hemoglobin A1c was found to be 8.1. The patient's metformin was put on hold because of worsening renal function. The patient was maintained on dipeptidyl dipeptidase-4 inhibitors. The patient refused to take any insulin, although the patient's blood sugars were checked before meals and at bedtime. He has underlying essential hypertension. The patient's angiotensin 2 receptor blockers were put on hold because of worsening renal function. The patient's blood pressure remained stable throughout the hospital course. All the patient's symptomatology resolved throughout the patient's hospital course and the patient's renal function back to normal. The patient was cleared by consultants to be discharged home. The patient denied any complaints at the time of discharge. DISCHARGE DISPOSITION/PLAN: The patient will be discharged home today. The patient was instructed to take a carbohydrate controlled low-cholesterol diet as tolerated. The patient was instructed to resume activities as tolerated. He was instructed to resume his home medications. He was instructed to follow up with his primary care physician in 1 week and if he does not have a primary care physician he was told to please call Dr. Russel Ibarra's office. He was instructed to please arrange for checking renal function in 1 week with his primary care physician. He was instructed to call 911 or go to the nearest emergency room if he has any chest pain, significant shortness of breath or any other unusual some signs/symptoms. The patient verbalized understanding of his discharge instructions. CONDITION AT DISCHARGE: Stable. DISCHARGE MEDICATIONS 1. Flagyl 500 mg p.o. q.8 hours x7 days. 2. Atorvastatin 10 mg p.o. at bedtime. 3. Clonidine 0.1 mg p.o. q.4h. p.r.n. elevated blood pressure. 4. Cozaar 25 mg p.o. daily. 5. Metformin 1000 mg p.o. with breakfast and dinner. 6. Januvia 100 mg p.o. daily. PERTINENT LABORATORY AND DIAGNOSTIC DATA 1. 2D echocardiogram. Ejection fraction of 55%. Stage I diastolic dysfunction. Normal appearance and function of the mitral valve with trace physiologic regurgitation. Normal appearance of the tricuspid valve. Unable to obtain RVSP due to minimal presence of tricuspid regurgitation. 2. Nuclear medicine cardiac stress test. No evidence of perfusion defects. No wall motion abnormalities. Left ventricular ejection fraction at stress is 69%. 3. CT angiogram of the chest. No evidence of pulmonary embolism or aortic dissection. Right colonic diverticula without evidence of diverticulitis. Mild stranding of the central mesenteric fat representing nonspecific mesenteritis. Small umbilical hernia containing fat. 4. Chest x-ray upon admission: No acute disease. 5. Renal ultrasound. Unremarkable retroperitoneal ultrasound. 6. Latest CBC: WBC 7.0, hemoglobin 14.6, hematocrit 41.1, platelet count 140. 7. Latest BMP: Sodium 141, potassium 3.8, chloride 102, carbon dioxide 26, anion gap 17, BUN 18, creatinine 1.21, glucose 170, calcium 8.7, phosphorus 3.0 , magnesium 1.9. 8. Hemoglobin A1c 8.1. 9. Fasting lipid panel: Triglycerides 140, total cholesterol 127, LDL 61, HDL 30. At this time, I would like to thank all the consultants for seeing the patient, doing the necessary procedures, and providing clinical recommendations. The case and management of this patient was fully discussed with Dr. Cano. Approximately 40 minutes was spent on coordinating the discharge on this patient. CRYS CANO MD, AM/CINDI Conf#: [id number] DID#: [id number]
== END 2016-08-21 15:05 | disposition home or self-care (01) | DRG 313 ==
LOC: E/R 17:42 → TEL 08-19 01:35 → UNDOADMOB 08-19 01:35 → OBSVTOIN 08-20 15:13
PROVIDERS: ADMIT Student in an Organized Health Care Education/Training Program; ATTEND Student in an Organized Health Care Education/Training Program
DX: R07.9 Chest pain, unspecified (principal); N17.9 Acute kidney failure, unspecified; K65.4 Sclerosing mesenteritis; I10 Essential (primary) hypertension; E11.9 Type 2 diabetes mellitus without complications; E78.5 Hyperlipidemia, unspecified; L80 Vitiligo; K57.90 Diverticulosis of intestine, part unspecified, without perforation or abscess without bleeding
CPT/HCPCS: 36415; 71010; 71275; 74177; 76775; 78452; 80048; 80053; 80061; 81003; 82043; 82306; 82550; 82553; 82962; 83036; 83735; 83880; 83970; 84100; 84155; 84300; 84443; 84484; 85025; 85610; 85651; 85730; 86140; 90686; 93005; 93017; 93306; G0378; A9500; A9505; J1815; J2270; J2785; J7030; J7040; Q9967